=== PATIENT | female | born 1960 | race Caucasian/White ===

== ENCOUNTER 2020-08-27 19:21 | Emergency (ER) | payer OTHER ==
[~2020-08-27] VITALS: Ht 167.6 cm; Wt 74.8 kg
[2020-08-27 20:53] VITALS: BP 163/100
[2020-08-27] MEDS ORDERED: HYDROcodone-ACET 10/325MG TAB PO ONE (22:00)
[2020-08-27] MEDS ORDERED: ONDANSETRON ODT 4 MG TAB PO ONE (22:00)
== END 2020-08-27 21:30 | disposition home or self-care (01) ==
LOC: ER 19:21 → EDBD 19:21 → ER 21:30
DX: S82.852A Displaced trimalleolar fracture of left lower leg, initial encounter for closed fracture (principal); K21.9 Gastro-esophageal reflux disease without esophagitis; I10 Essential (primary) hypertension; W01.0XXA Fall on same level from slipping, tripping and stumbling without subsequent striking against object, initial encounter; Y93.89 Activity, other specified; Y92.89 Other specified places as the place of occurrence of the external cause; Y99.8 Other external cause status
CPT/HCPCS: 29515; 73610

== ENCOUNTER 2023-10-13 04:09 | Emergency (ER) | payer OTHER ==
[~2023-10-13] VITALS: Ht 160 cm; Wt 65.0 kg
[2023-10-13 04:40] VITALS: PULSE 92; RESP 16; O2SAT 96
[2023-10-13 07:30] VITALS: PULSE 74; RESP 12
[2023-10-13] MEDS ORDERED: SODIUM CHLORIDE 0.9% 1,000 ML IV ONE (08:15)
[2023-10-13] MEDS ORDERED: MORPHINE SULFATE INJ 2 MG/ml SYRG IV ONE (08:15)
[2023-10-13 08:20] VITALS: O2SAT 97
[2023-10-13 09:21] LABS: Basophils # (auto) 0 10 ^3/uL (0-0.2); Basophils % (auto) 0.5 % (0.0-2.0); Eosinophils # (auto) 0.1 10 ^3/uL (0-0.8); Hematocrit 38.1 % (36.0-46.0); Hemoglobin 12.7 g/dL (12.2-16.2); Lymphocytes # (auto) 1.3 10 ^3/uL (0.4-5.4); Lymphocytes % (auto) 17.2 % (10.0-50.0); Mean Corpuscular Hemoglobin 29.4 pg (28.0-32.0); Mean Corpuscular Hgb Conc. 33.5 g/dL (32.0-36.0); Mean Corpuscular Volume 87.8 fL (80.0-100.0); Monocytes # (auto) 0.2 10 ^3/uL (0-1.3); Neutrophils # (auto) 6.1 10 ^3/uL (1.6-8.6); Neutrophils % (auto) 78.3 % (37.0-80.0); Nucleated Red Blood Cells % 0.1 %; Red Blood Cells 4.34 10^6/uL (4.0-5.20); Red Cell Distribution Width 13.8 % (11.8-14.3); White Blood Cell 7.9 10^3/uL (4.4-10.8)
[2023-10-13 09:23] LABS: Chloride 104 mmol/L (98-107); Sodium 139 mmol/L (136-145)
[2023-10-13 09:24] LABS: Anion Gap 7 (5-15); Carbon Dioxide 28 mmol/L (20-30)
[2023-10-13 09:25] LABS: Calcium 9.8 mg/dL (8.5-10.1)
[2023-10-13 09:29] LABS: Glucose 101 mg/dL (74-106)
[2023-10-13 10:00] VITALS: BP 153/85; RESP 16
[2023-10-13 10:58] VITALS: PULSE 70
[2023-10-13 11:00] LABS: BUN/Creatinine Ratio 18.8 (10.0-20.0); Blood Urea Nitrogen 16 mg/dL (9-23); Potassium 4.3 mmol/L (3.5-5.1)
[2023-10-13] MEDS ORDERED: HYDR1TAB97 PO (11:01)
[2023-10-13] MEDS ORDERED: NAPR-1334 PO (11:01)
[2023-10-13] MEDS ORDERED: ZOFR4T PO (11:01)
== END 2023-10-13 11:04 | disposition home or self-care (01) ==
LOC: EDBD 04:09 → EDUNIT# 04:09 → ER 04:09
DX: S42.001A Fracture of unspecified part of right clavicle, initial encounter for closed fracture (principal); S00.03XA Contusion of scalp, initial encounter; R42 Dizziness and giddiness; E11.9 Type 2 diabetes mellitus without complications; I10 Essential (primary) hypertension; E78.5 Hyperlipidemia, unspecified; K21.9 Gastro-esophageal reflux disease without esophagitis; W18.09XA Striking against other object with subsequent fall, initial encounter; Y93.89 Activity, other specified; Y92.098 Other place in other non-institutional residence as the place of occurrence of the external cause; Y99.8 Other external cause status
CPT/HCPCS: 36415; 70450; 73030; 80048; 84484; 85025; 93005; 96361; 96374; 99285; J2270; J7030